=== PATIENT | male | born 1975 | race African-American/Black ===

== ENCOUNTER 2018-05-25 11:13 | Emergency (ER) | payer MEDICAID, OTHER ==
--- NOTE | 2018-05-25 11:33 | EDPHY ---
H & P Time Seen by Provider: 05/25/18 11:21 HPI/ROS: CHIEF COMPLAINT: Back pain HISTORY OF PRESENT ILLNESS: The patient is a 48-year-old male with a history of degenerative disc disease and MS who presents emergency department with right sided back muscle spasm. The patient states he was swimming a few days ago when he felt a sudden spasm of his right-sided back muscles. He feels and not in the muscle. It is worse with movement. He has no numbness or tingling. No incontinence of urine or stool. No fevers or chills. REVIEW OF SYSTEMS: My complete review of systems is negative except as mentioned in the HPI. Past Medical/Surgical History: Includes MS, degenerative disc disease Smoking Status: Heavy smoker Physical Exam: Vitals noted GENERAL: Mild acute distress, alert. HEENT: Eyes normal to inspection, normal pharynx, no signs of dehydration. NECK: [No thyromegaly, no lymphadenopathy, supple. RESPIRATORY: Clear to auscultation bilaterally, no rales, rhonchi or wheezing. CVS: Regular rate and rhythm, no rubs, murmurs, or gallops. ABDOMEN: Soft, nontender, nondistended, no organomegaly. BACK: Patient has the muscle spasm on the right lateral aspect of his lower thoracic back. The spine is nontender. There is no step-off. No CVA tenderness. SKIN: Normal color, no rash, warm, dry. No pallor. EXTREMITIES: No pedal edema, no calf tenderness, no Homans sign or cords, no joint swelling. NEURO/PSYCH: Alert and oriented x3, normal mood and affect, normal motor sensory exam. Constitutional: Initial Vital Signs Temperature (C) 37.0 C 05/25/18 11:19 Heart Rate 78 05/25/18 11:19 Respiratory Rate 16 05/25/18 11:19 Blood Pressure 170/117 H 05/25/18 11:19 O2 Sat (%) 94 05/25/18 11:19 O2 Delivery Mode Room Air Allergies/Adverse Reactions: No Known Allergies Allergy (Verified 05/25/18 11:18) Home Medications: Medication Instructions Recorded Cyclobenzaprine [Flexeril] 10 mg PO TID #15 tab 05/25/18 Hydrocodone/APAP 5/325 [Draper 1 - 2 tab PO Q4 #13 tab 05/25/18 5/325 (RX)] Lisinopril 05/25/18 Medical Decision Making ED Course/Re-evaluation: In the emergency department I discussed possible etiologies with the patient. I answered all his questions. Patient was given a prescription for muscle relaxer as well as pain medicine. It was recommended he follow up with his primary care physician as well as physical therapist. Differential Diagnosis: My differential includes but is not limited to muscle spasm, muscle strain, disc herniation, mass, malignancy Departure - Departure Disposition: Home, Routine, Self-Care Clinical Impression: Muscle spasm Back pain Qualifiers: Back pain location: thoracic back pain Chronicity: acute Back pain laterality: right Qualified Code(s): M54.6 - Pain in thoracic spine Condition: Good Instructions: Muscle Spasm (ED), Back Pain (ED) Additional Instructions: Take your medications as directed. Return with increasing pain, weakness, numbness or any other concerns. You need to see physical therapy or a massage therapist to help loosen the muscle. Referrals: Masood Orona MD [Medical Doctor] - 3-4 days, if not improved Prescriptions: Cyclobenzaprine [Flexeril] 10 mg PO TID #15 tab Hydrocodone/APAP 5/325 [Draper 5/325 (RX)] 1 - 2 tab PO Q4 #13 tab
[2018-05-25 11:55] VITALS: BP 168/122
== END 2018-05-25 11:54 | disposition home or self-care (01) ==
LOC: CED 11:13
DX: M62.830 Muscle spasm of back (principal); F17.200 Nicotine dependence, unspecified, uncomplicated